=== PATIENT | female | born 1965 | race Caucasian/White ===

== ENCOUNTER → 2016-11-19 | Outpatient (CLI) | payer BC ==
--- NOTE | 2016-11-19 13:29 | RADIOLOGY REPORT PS360 ---
US RUQ-(ABD LTD)1ORGAN/QUAD/FU HISTORY: RUQ PAIN ORDERING PHYSICIAN: Angelina Lemon APRN PATIENT AGE: 51 years COMPARISON: None FINDINGS: PANCREAS:Unremarkable. No obvious mass or abnormal fluid collection. No ductal dilatation LIVER:There is generalized increased echogenicity of the liver cyst with hepatic steatosis with poor through transmission of sound. No focal liver lesions demonstrated RIGHT KIDNEY:Unremarkable. Normal size and echogenicity. No hydronephrosis GALLBLADDER:No gallstones, gallbladder wall thickening, pericholecystic fluid, or biliary dilatation. IMPRESSION: Hepatic steatosis otherwise negative right upper quadrant/gallbladder ultrasound
--- NOTE | 2016-11-19 13:43 | RADIOLOGY REPORT PS360 ---
US PELVIS-TRANSVAGINAL ONLY HISTORY: Dysfunctional uterine bleeding with spotting and back pain DUB ORDERING PHYSICIAN: Angelina Lemon APRN PATIENT AGE: 51 years COMPARISON: None FINDINGS: The uterus is 8 x 3 cm with a combined endometrial thickness of 10 mm. There are nabothian cysts present area no uterine mass apparent. The ovaries somewhat difficult to image but have an unremarkable appearance. The right ovary is 1.6 x 1 cm and left ovary is 1.7 x 1.7 cm. No cul-de-sac fluid. IMPRESSION: Mildly thickened endometrium otherwise negative pelvic ultrasound
== END ==
LOC: RAD 09:41
DX: R10.9 Unspecified abdominal pain (principal); N93.9 Abnormal uterine and vaginal bleeding, unspecified

== ENCOUNTER 2016-12-10 09:26 | Day surgery (SDC) | payer BC ==
--- NOTE | 2016-12-10 10:40 | Operative Note ---
Colonoscopy ([facility]) Procedure date: 12/10/16 Date of : 67 Procedure:Colonoscopy Colonoscopy with cold snare polypectomy and cold biopsies Indications: Mrs. Young is a 51-year-old female who is here for diagnostic colonoscopy. The patient does state that she developed diarrhea 2 months ago and has watery and loose stools 5-6 times daily. This does not always occur postprandially. She reports no crampy abdominal discomfort, gassiness or bloating. She reports no rectal bleeding or weight loss. She reports no family history of colitis, Crohn' s disease or colon cancer. Her ultrasound of the gallbladder and RIGHT upper quadrant was unremarkable. Performing Provider: Jaylen Edwards MD Referrring Provider: Florina MONTEJO Sedation: Fentanyl 200 mg IV/Versed 7 mg IV Procedure: Prior to the procedure, a history and physical exam was performed, and patient medications and allergies were reviewed. The risks and benefits of the procedure and the sedation options and risks were discussed with the patient. All questions were answered and informed consent was obtained. Patient identification and proposed procedure were verified by the physician and the nurse. The patient was placed in a left lateral decubitus position. Throughout the procedure, the patient's blood pressure, pulse, and oxygen saturations were monitored continuously. Findings: On digital rectal examination there was normal rectal tone. There were no external hemorrhoids. The colonoscope was introduced through the anal canal to the rectum and advanced to the cecum. The ileocecal valve and appendiceal orifice were identified. The scope was advanced a short distance into the ileum which appeared grossly normal. The scope was then withdrawn into the colon. There were 3 colon polyps identified in the sigmoid 1 and rectosigmoid 2. These ranged in size from 5-7 mm and were all removed via cold snare polypectomy. The remaining cecum, ascending, transverse, descending, sigmoid and rectum were grossly normal. Random cold biopsies were taken from the RIGHT colon to rule out microscopic (lymphocytic or collagenous) colitis. There were no other mucosal abnormalities identified. Upon retroflexion within the rectum there were grade 1 internal hemorrhoids. Impressions: 1. Colonic polyps 3 2. Grade 1 internal hemorrhoids Recommendations: I will follow up the polyp histology and recommend repeat screening/surveillance colonoscopy again in 5 years if the polyps are adenomatous. I will follow up the biopsies to exclude microscopic colitis. If the biopsies are indicative of microscopic colitis, I would give trial of budesonide/Entocort Complications: None EBL (ml): 0 at [id number]
[2016-12-10 15:20] VITALS: BP 124/80
== END 2016-12-10 11:25 | disposition home or self-care (01) ==
LOC: SDC 09:26
PROVIDERS: Internal Medicine Gastroenterology
PROC: 0DBP8ZX Excision of Rectum, Via Natural or Artificial Opening Endoscopic, Diagnostic (ICD-10-PCS; 2016-12-10)
PROC: 0DBE8ZX Excision of Large Intestine, Via Natural or Artificial Opening Endoscopic, Diagnostic (ICD-10-PCS; 2016-12-10)
PROC: 0DBN8ZX Excision of Sigmoid Colon, Via Natural or Artificial Opening Endoscopic, Diagnostic (ICD-10-PCS; principal; 2016-12-10 10:30)
DX: R19.7 Diarrhea, unspecified (principal); D12.7 Benign neoplasm of rectosigmoid junction; D12.5 Benign neoplasm of sigmoid colon